=== PATIENT | female | born 1935 | race Caucasian/White ===

== ENCOUNTER 2016-09-22 11:17 | Inpatient (IN) | payer OTHER ==
--- NOTE | ~2016-09-22 | HP ---
History And Physical [id number] [place]. [address] NAME: MIGUEL TRINIDAD : 35 STATUS : ADM IN [facility]#: [id number] AGE: 81 ADM/REG DATE : 09/22/16 MR#: [id number] REPORT SERV DATE: 09/23/16 DICTATED BY: REESE JONES III DATE: 09/23/16 REPORT STATUS : Draft TRANSCRIBED BY: ROSA M DATE: 09/23/16 DATE OF ADMISSION: 09/22/2016 HISTORY OF PRESENT ILLNESS: Mrs. Miguel Trinidad is an 81-year-old, white female from [place], [place], admitted to [facility] for treatment of an acute inferior ST- segment elevation myocardial infarction - acute coronary syndrome approximately 30 minutes after symptom onset. The patient had been in her usual state of health until approximately 30 minutes prior to presentation. At that time, the patient noted the onset of dull substernal chest pain radiating to her neck and head. The patient's chest pain was continuous in character. The patient's chest pain was accompanied by dyspnea, diaphoresis, and nausea. The patient denied any associated vomiting. The patient's chest pain was precipitated by exertion. The patient denied relief with an ice pack. The patient denied trying antacids, heating pad, and sublingual nitroglycerin. The patient was subsequently seen by the emergency medical service. A 12-lead electrocardiogram demonstrated findings consistent with an acute inferior ST-segment elevation myocardial infarction. The patient was treated with aspirin, heparin 3000 units intravenously, and sublingual nitroglycerin. The patient was subsequently transported to [facility] where she was admitted for emergent cardiac catheterization and consideration of revascularization. The patient has a history of dyspnea on exertion, but could not quantitate her functional limitation. The patient denied orthopnea, paroxysmal nocturnal dyspnea, trepopnea, slight tachypnea, pedal edema, sacral edema, hip claudication, and lower extremity claudication. The patient has no history of rheumatic fever or cardiac murmur. The patient's only documented coronary artery disease risk factor was peripheral arterial disease. PAST MEDICAL HISTORY: 1. Arthritis. 2. History of a mesenteric stent. 3. Nausea and abdominal pain of unclear etiology. OPERATIVE PROCEDURES: 1. Status post bilateral tubal ligation. 2. Status post OU cataract extractions with intra-ocular lens implants. 3. Status post lumbar spinal fusion. 4. Status post repeat lumbar spinal fusion. ALLERGIES: SULFA MEDICATIONS. MEDICATIONS: 1. Multivitamin with minerals one p.o. daily. 2. Ondansetron 4 mg sublingual q.12 hours, p.r.n. pain. 3. Pregabalin 50 mg p.o. q.8 hours. 4. Tramadol 50 mg p.o. b.i.d., p.r.n. FAMILY HISTORY: Positive for heart disease, hypertension, stroke, cancer and depression. Negative for seizures, kidney disease, liver disease, anemia, and arthritis. History And Physical [address] [address] NAME: MIGUEL TRINIDAD : 35 STATUS : ADM IN [facility]#: [id number] AGE: 81 ADM/REG DATE : 09/22/16 MR#: [id number] REPORT SERV DATE: 09/23/16 DICTATED BY: REESE JONES III DATE: 09/23/16 REPORT STATUS : Draft TRANSCRIBED BY: ROSA M DATE: 09/23/16 SOCIAL HISTORY: The patient has a history of remote alcohol use. The patient denied any history of tobacco use. PHYSICAL EXAMINATION: GENERAL: Physical examination demonstrated an alert, older white female, in mild respiratory distress. VITAL SIGNS: Demonstrated that she was afebrile to touch, respiratory rate was 19 breaths per minute, and blood pressure was 137/78 mmHg with a heart rate of 60 beats per minute. SKIN: Warm and dry. NECK: Supple and nontender. There was decreased range of motion. There was no appreciable lymphadenopathy or thyromegaly. There was no jugular venous distention appreciable. There were no carotid bruits. BACK: Examination of the back demonstrated no spinal or costovertebral angle tenderness. CHEST: Examination of the chest demonstrated left basilar inspiratory crackles. There were no rhonchi, wheezes, or pleural rubs. There was symmetrical expansion of the chest. There was no use of the accessory muscles respiration. CARDIAC: Cardiac examination demonstrated a nonpalpable apical impulse. There was a regular rhythm and rate without appreciable murmur, rub, gallop, or mid systolic click. There were no thrills or heaves. There was no hepatojugular reflux. ABDOMEN: Examination of the abdomen demonstrated that it was soft and nontender. There was no appreciable hepatosplenomegaly or masses. Bowel sounds were intact. There were no abdominal, flank, or femoral bruits. EXTREMITIES: Examination of the extremities demonstrated that they were symmetrical. There was decreased range of motion. There was no cyanosis, clubbing, or edema. Pulses were 2+ and equal at the radial, femoral, and dorsalis pedis arteries. The right posterior tibial pulse was 2+ and the left posterior tibial pulse was 1+. ASSESSMENT: Mrs. Miguel Trinidad is an 81-year-old, white female with two other risk factors for coronary atherosclerotic disease (i.e. Dyslipidemia, peripheral arterial disease) and no prior cardiac history, who presents with an acute inferior ST-segment elevation myocardial infarction - acute coronary syndrome approximately 30 minutes after symptom onset. The patient is admitted for emergent cardiac catheterization and consideration of revascularization. Options, potential risks and benefits of the procedure were discussed with the patient. The patient accepted these risks and wished to proceed. /ROSA M Reese Jones III, M.D., [facility], [facility] / [id number] CC: Reese Jones III, M.D., [facility], [facility] And Physical [address] [address] NAME: MIGUEL TRINIDAD : 35 STATUS : ADM IN [facility]#: [id number] AGE: 81 ADM/REG DATE : 09/22/16 MR#: [id number] REPORT SERV DATE: 09/23/16 DICTATED BY: REESE JONES III DATE: 09/23/16 REPORT STATUS : Draft TRANSCRIBED BY: MODL DATE: 09/23/16 Ida Cisneros
--- NOTE | ~2016-09-22 | OP ---
Record Of Operation [facility] [address] [place]. [address] NAME: MIGUEL TRINIDAD : 35 STATUS : DIS IN PAT#: [id number] AGE: 81 ADM/REG DATE : 09/22/16 MR#: [id number] REPORT SERV DATE: 09/28/16 DICTATED BY: REESE JONES III DATE: 09/28/16 REPORT STATUS : Draft TRANSCRIBED BY: MODL DATE: 09/28/16 DATE OF PROCEDURE: 09/22/2016 PROCEDURAL HSE MANAGER: Reese Jones M.D., [facility], [facility]. INDICATION: Ms. Miguel Trinidad is an 81-year-old white female with two other risk factors for coronary atherosclerotic disease (i.e., dyslipidemia, peripheral arterial disease) and no prior cardiac history, who presented with an acute inferior ST-segment elevation myocardial infarction-acute coronary syndrome approximately 30 minutes after symptom onset. The patient was referred for emergent cardiac catheterization and consideration of revascularization. Options, potential risks, and benefits of the procedure were discussed with the patient. The patient accepted these risks and wished to proceed. PROCEDURE DESCRIPTION: 1. Left heart catheterization. 2. Left ventriculogram. 3. Left and right coronary angiograms. 4. Percutaneous transluminal coronary angioplasty with implantation of a 3.5 x 12 mm/2.75 x 16 mm/2.25 x 12 mm [employer] Synergy EES in the mid to distal portions of the right coronary artery. 5. Limited right iliofemoral angiogram. CONTRAST: Iopamidol. MEDICATIONS: 1. Midazolam 0.5 mg intravenously. 2. Sublimaze 25 mcg intravenously. 3. Heparin 1000 units intravenously (for a total of 4000 units). 4. Bivalirudin with a loading dose of 0.75 mg/kg intravenously, followed by an intravenous infusion at 1.75 mg/kg per hour. 5. Ticagrelor 180 mg orally. EQUIPMENT: 1. 4-Dominican Cook micropuncture with stiffened cannula (RFA). 2. 0.035 inch PTFE coated, 150 cm, 3 mm [employer] [place] guidewire. 3. 6-Dominican, 11 cm Cordis Fadumo MS sheath. 4. 6-Dominican, 100 cm #4 curve left coronary artery Philip catheter. 5. 6-Dominican, 100 cm Nathanael 3D right coronary artery catheter. 6. 6-Dominican Hockey Stick Cordis [place] Brite-Tip guiding catheter. 7. 0.014 inch Hi-Torque floppy, 190 cm, extra-support Andrade Whisper steerable guidewire. 8. 2.5 x 15 mm [employer] Emerge MR balloon dilatation catheter (14 atmospheres for a duration of 30 seconds). 9. 2.75 x 16 mm [employer] Synergy MR stent deployment system (16 atmospheres for a duration of 60 seconds). 10.3.5 x 12 mm [employer] Synergy MR stent deployment system (18 atmospheres for a duration of 60 seconds). Record Of Operation [facility] [address] [facility] [place]. [address] NAME: MIGUEL TRINIDAD : 35 STATUS : DIS IN PAT#: [id number] AGE: 81 ADM/REG DATE : 09/22/16 MR#: [id number] REPORT SERV DATE: 09/28/16 DICTATED BY: REESE JONES III DATE: 09/28/16 REPORT STATUS : Draft TRANSCRIBED BY: ROSA M DATE: 09/28/16 11.2.25 x 12 mm [employer] Synergy MR stent deployment system (20 atmospheres for a duration of 60 seconds). 12.6-Dominican, 110 cm pigtail-145 catheter. 13.6-Dominican Andrade Perclose ProGlide vascular closure device. COMPLICATIONS: None. RADIATION DOSE: 787 mGy. ESTIMATED BLOOD LOSS: 10 mL. HEMODYNAMIC DATA: Prior to left ventriculography, the central aortic pressure was 140/73 mmHg. The left ventricular pressure was 170/23 mmHg. There was no significant [id number] gradient on pullback from the left ventricle to the aorta. ANGIOGRAPHIC DATA: Single plane 30-degree MENA left ventriculography demonstrated that the left ventricle was mild to moderately enlarged. There was apical hypokinesis, diaphragmatic hypokinesis to akinesis and posterobasal profound hypokinesis to akinesis. Otherwise, regional left ventricular systolic function was normal. Global left ventricular systolic function was moderately reduced. There was no mitral regurgitation. The left main coronary artery was a large caliber, long vessel. There was an eccentric, calcified 40%-50% stenosis involving the distal portion of the left main coronary artery. The left main coronary artery trifurcated into a medium caliber left anterior descending, small to medium caliber ramus intermedius and a small caliber, nondominant left circumflex coronary artery. The left anterior descending coronary artery gave rise to two major septal perforators, small to medium caliber first diagonal branch and a small caliber second diagonal branch, before wrapping around the left ventricular apex. The left anterior descending coronary artery was diffusely irregular. There was an eccentric 25%-40% stenosis involving the mid portion of the left anterior descending coronary artery, just following the origin of the second major septal harness repairer and proximal to the origin of the second major diagonal branch. The left anterior descending coronary artery was free of angiographically significant obstructive epicardial coronary artery disease. The ramus intermedius was a small to medium caliber, irregular vessel. The ramus intermedius gave rise to the first major septal harness repairer. There was a radiolucent 70%-90% stenosis involving the proximal portion of the ramus intermedius coronary artery. The ramus intermedius bifurcated in its midportion into a small caliber proximal branch and a small caliber distal branch. There was a radiolucent, concentric 90% stenosis involving the proximal to midportion of the distal branch of the ramus intermedius coronary artery. The remainder of the ramus intermedius coronary artery was free of angiographically significant obstructive epicardial coronary artery disease. The left circumflex coronary artery was a small caliber, nondominant vessel. There was a concentric 50% stenosis involving the origin of the left circumflex coronary artery from the Record Of Operation [id number] [facility] [place]. [address] NAME: MIGUEL TRINIDAD : 35 STATUS : DIS IN PAT#: [id number] AGE: 81 ADM/REG DATE : 09/22/16 MR#: [id number] REPORT SERV DATE: 09/28/16 DICTATED BY: REESE JONES III DATE: 09/28/16 REPORT STATUS : Draft TRANSCRIBED BY: ROSA M DATE: 09/28/16 left main coronary artery. There was a long, irregular 50% stenosis involving the proximal portion of the left circumflex coronary artery, just proximal to the origin of the obtuse marginal branch. The remainder of the left circumflex coronary artery was free of angiographically significant obstructive epicardial coronary artery disease. The right coronary artery was a medium to large caliber, dominant vessel. The right coronary artery gave rise to a conus branch, sinoatrial branch, small caliber first right ventricular branch, small caliber second right ventricular branch, small caliber acute marginal branch, medium caliber posterior descending coronary artery, small to medium caliber first posterior left ventricular branch, small caliber second posterior left ventricular branch, and a small caliber third posterior left ventricular branch. The right coronary artery was diffusely irregular. There was a radiolucent, eccentric 50%-70% stenosis involving the mid to distal portion of the right coronary artery, at the origin of the acute marginal branch. There was a radiolucent, concentric 90% stenosis involving the distal portion of the right coronary artery, just proximal to the origin of the posterior descending coronary artery. There was a 50% stenosis involving the proximal to midportion of the first right ventricular branch. The remainder of the right coronary artery was free of angiographically significant obstructive epicardial coronary artery disease. Following balloon dilatation and implantation of a 3.5 x 12 mm/2.75 x 16 mm/2.25 x 12 mm [employer] Synergy EES in the mid to distal portions of the right coronary artery, selective injections of the right coronary artery demonstrated a reduction in the stenoses to approximately 0%. There was no intraluminal radiolucency or irregularity. There was JEY grade III perfusion of the distal vessel. Limited right iliofemoral angiography demonstrated tortuosity of the distal external iliac artery. There were diffuse irregularities of the common femoral artery. There were 20%-25% stenosis involving the origins of the superficial femoral and femoral profunda arteries. The sheath insertion site was located in the common femoral artery, just distal to the origin of the inferior epigastric artery. PATIENT DISPOSITION: Cardiac Care Unit. CONCLUSION: 1. Apical hypokinesis, diaphragmatic hypokinesis to akinesis and posterobasal profound hypokinesis to akinesis, with a moderate reduction in global left ventricular systolic function. 2. Elevated left ventricular end-diastolic pressure. 3. Angiographically significant three-vessel coronary artery disease, involving the proximal portion of the ramus intermedius, proximal portion of left circumflex and mid to distal portions of the right coronary arteries. 4. Right dominant coronary anatomy. 5. Successful percutaneous transluminal coronary angioplasty with implantation of a 3.5 x 12 mm/2.75 x 16 mm/2.25 x 12 mm [employer] Synergy EES in the mid to distal portions of the right coronary artery, with reduction in the stenoses to approximately 0% and JEY grade III perfusion of the distal vessel. Record Of Operation [facility] [place]. [address] NAME: MIGUEL TRINIDAD : 35 STATUS : DIS IN PAT#: [id number] AGE: 81 ADM/REG DATE : 09/22/16 MR#: [id number] REPORT SERV DATE: 09/28/16 DICTATED BY: REESE JONES III DATE: 09/28/16 REPORT STATUS : Draft TRANSCRIBED BY: ROSA M DATE: 09/28/16 RECOMMENDATION: Aspirin for life, Ticagrelor for one year, metoprolol, ramipril, high- intensity atorvastatin, cardiac rehabilitation program, and consider staged percutaneous coronary intervention of the ramus intermedius coronary artery. MARQUIS/ROSA M Reese Jones III, M.D., [place] [place] / [id number] CC: Reese Jones III, M.D., [place] [facility] M.
[~2016-09-22 11:17] MED LIST: CALTRA600D PO; CLARIT10 PO; DIL2TAB PO; DSS PO; IBUDONE1 TA1 OR; LIOR10 PO; LORT7 PO; LORTAB 5 PO; LYRICA75 PO; MAG-DELAY PO; MAXZIDE PO; METHOC500B PO; MULTIVIT/MIN PO; NORV5 PO; PROTONIX PO; SUCR PO; ULTRAM50 PO; VITAMIN D31000 UNIT PO; VITC500 PO; VITE PO
[2016-09-22] MEDS ORDERED: ULTRAM50 PO (11:30)
[2016-09-22] MEDS ORDERED: MULTIVIT/MIN PO (11:35)
[2016-09-22] MEDS ORDERED: LYRICA50 PO (11:35)
[2016-09-22] MEDS ORDERED: ZOFRAN ODT4 MG SL (11:36)
[2016-09-22 11:58] LABS: BASOPHILS ABSOLUTE 0.07 10/3/uL (0.0-0.16); EOSINOPHILS 2.5 %; EOSINOPHILS ABSOLUTE 0.18 10/3/uL (0.0-0.53); ER CBC TAT 0 Hrs 08 Mins; HEMATOCRIT 40.9 % (36.0-48.0); HEMOGLOBIN 13.6 g/dL (12.0-16.0); IMMATURE GRANULOCYTES 0.3 %; IMMATURE GRANULOCYTES ABSOLUTE 0.02 10/3/uL (0.0-0.11); LYMPHOCYTES 26.7 %; LYMPHOCYTES ABSOLUTE 1.91 10/3/uL (0.67-4.30); MANUAL DIFF NO %; MEAN CORPUS HGB CONC 33.3 g/dL (32.0-36.0); MEAN CORPUSCULAR HEMOGLOB 29.5 pg (26.0-34.0); MEAN CORPUSCULAR VOLUME 88.7 fL (80-100); MEAN PLATELET VOLUME 9.7 fL (9.2-13.0); MONOCYTES 5.9 %; MONOCYTES ABSOLUTE 0.42 10/3/uL (0.21-1.20); NEUTROPHILS 63.6 %; NEUTROPHILS ABSOLUTE 4.56 10/3/uL (2.02-8.40); PLATELET COUNT 211 10/3/uL (150-400); RBC DISTRIBUTION WIDTH 13.1 % (12.0-16.0); RED CELL COUNT 4.61 10/6/uL (4.0-5.6); WHITE BLOOD CELLS 7.2 10/3/uL (4.5-10.5)
[2016-09-22 12:06] LABS: INTERNATIONAL NORMAL RATI 1.3 UNITS (-); PROTIME (NOT ORD) 15.6 SEC (12.0-14.5)
[2016-09-22 12:12] LABS: CALCIUM, SERUM 8.5 MG/DL (8.5-10.4); CHEST PAIN PROFILE TAT 0 Hrs 22 Mins; CHLORIDE, SERUM 107 MMOL/L (96-112); CO2 (CARBON DIOXIDE) 32 MMOL/L (24-34); CREATININE 0.83 MG/DL (0.55-1.02); GFR AFRICAN AMERICAN 77 ML/MIN (>=60); GFR NON AFRICAN AMERICAN 66 ML/MIN (>=60); GLUCOSE, SERUM 103 MG/DL (60-99); SODIUM, SERUM 143 MMOL/L (135-148); TROPONIN I <0.02 NG/ML (<0.05)
[2016-09-22 12:14] LABS: BUN (BLOOD UREA NITROGEN) 21 MG/DL (6-23)
[2016-09-22 12:18] LABS: PARTIAL THROMBO TIME > 150.0 SEC (22.5-37.2)
[2016-09-22 14:12] LABS: CK-MB 1.2 NG/ML; CPK 85 U/L (0-200)
[2016-09-22 20:19] LABS: CK-MB 133.4 NG/ML
[2016-09-22 20:20] LABS: CKMB INDEX (NOT ORD) 18.5
[2016-09-23 04:27] LABS: HEMATOCRIT 40.6 % (36.0-48.0); HEMOGLOBIN 13.6 g/dL (12.0-16.0); MEAN CORPUS HGB CONC 33.5 g/dL (32.0-36.0); MEAN CORPUSCULAR HEMOGLOB 29.8 pg (26.0-34.0); MEAN CORPUSCULAR VOLUME 88.8 fL (80-100); MEAN PLATELET VOLUME 9.3 fL (9.2-13.0); PLATELET COUNT 209 10/3/uL (150-400); RBC DISTRIBUTION WIDTH 13.3 % (12.0-16.0); RED CELL COUNT 4.57 10/6/uL (4.0-5.6)
[2016-09-23 04:28] LABS: MANUAL DIFF YES %; WHITE BLOOD CELLS 10.8 10/3/uL (4.5-10.5)
[2016-09-23 04:41] LABS: CALCIUM, SERUM 8.6 MG/DL (8.5-10.4); CHLORIDE, SERUM 111 MMOL/L (96-112); CHOLESTEROL 171 MG/DL (< 200); CK-MB 101.6 NG/ML; CPK 622 U/L (0-200); CREATININE 0.81 MG/DL (0.55-1.02); GFR AFRICAN AMERICAN 79 ML/MIN (>=60); GFR NON AFRICAN AMERICAN 68 ML/MIN (>=60); GLUCOSE, SERUM 120 MG/DL (60-99); HDL CHOLESTEROL 85 MG/DL (> 49); LDL CHOLESTEROL 80 MG/DL (< 130); NON-HDL CHOLESTEROL 86 MG/DL (< 160); POTASSIUM, SERUM 4.4 MMOL/L (3.5-5.3); SODIUM, SERUM 145 MMOL/L (135-148); TRIGLYCERIDE 30 MG/DL (< 150)
[2016-09-23 04:44] LABS: BUN (BLOOD UREA NITROGEN) 17 MG/DL (6-23); CKMB INDEX (NOT ORD) 16.3; CO2 (CARBON DIOXIDE) 26 MMOL/L (24-34)
[2016-09-23 04:52] LABS: BAND NEUTROPHILS 6 %; LYMPHOCYTES 1 %; LYMPHOCYTES ABSOLUTE (CALC) 0.11 10/3/uL (0.67-4.30); MONOCYTES 2 %; MONOCYTES ABSOLUTE (CALC) 0.22 10/3/uL (0.21-1.20); NEUTROPHILS ABSOLUTE (CALC) 10.48 10/3/uL (2.02-8.40); PLATELET ESTIMATE ADQ (ADEQUATE); RBC MORPHOLOGY NORM (NORMAL); SEGMENTED NEUTROPHIL (0) 91 %; TOTAL NUCLEATED CELLS 100
[2016-09-23 12:09] LABS: CK-MB 70.8 NG/ML
[2016-09-23 12:10] LABS: CKMB INDEX (NOT ORD) 14.6
[2016-09-24 03:57] LABS: BASOPHILS 0.8 %; BASOPHILS ABSOLUTE 0.06 10/3/uL (0.0-0.16); EOSINOPHILS 3.5 %; EOSINOPHILS ABSOLUTE 0.25 10/3/uL (0.0-0.53); HEMOGLOBIN 13.8 g/dL (12.0-16.0); IMMATURE GRANULOCYTES 0.3 %; IMMATURE GRANULOCYTES ABSOLUTE 0.02 10/3/uL (0.0-0.11); LYMPHOCYTES 21.6 %; LYMPHOCYTES ABSOLUTE 1.56 10/3/uL (0.67-4.30); MEAN CORPUS HGB CONC 32.9 g/dL (32.0-36.0); MEAN CORPUSCULAR HEMOGLOB 29.4 pg (26.0-34.0); MEAN CORPUSCULAR VOLUME 89.4 fL (80-100); MEAN PLATELET VOLUME 9.5 fL (9.2-13.0); MONOCYTES 5.8 %; MONOCYTES ABSOLUTE 0.42 10/3/uL (0.21-1.20); PLATELET COUNT 203 10/3/uL (150-400); RBC DISTRIBUTION WIDTH 13.7 % (12.0-16.0); WHITE BLOOD CELLS 7.2 10/3/uL (4.5-10.5)
[2016-09-24 03:58] LABS: MANUAL DIFF NO %
[2016-09-24 04:11] LABS: BUN (BLOOD UREA NITROGEN) 16 MG/DL (6-23); CALCIUM, SERUM 8.3 MG/DL (8.5-10.4); CHLORIDE, SERUM 110 MMOL/L (96-112); CO2 (CARBON DIOXIDE) 28 MMOL/L (24-34); CREATININE 0.79 MG/DL (0.55-1.02); GFR AFRICAN AMERICAN 81 ML/MIN (>=60); GFR NON AFRICAN AMERICAN 70 ML/MIN (>=60); POTASSIUM, SERUM 4.1 MMOL/L (3.5-5.3); SODIUM, SERUM 144 MMOL/L (135-148)
[2016-09-24 04:14] LABS: GLUCOSE, SERUM 91 MG/DL (60-99)
[2016-09-24] MEDS ORDERED: ASAB PO (12:56)
[2016-09-24] MEDS ORDERED: LIPITOR40 PO (12:57)
[2016-09-24] MEDS ORDERED: ALTACE10 MG PO (12:58)
[2016-09-24] MEDS ORDERED: BRILINTA90 MG PO (12:59)
[2016-09-24] MEDS ORDERED: NITROQUICK0.4 MG SL (13:00)
[2016-09-24] MEDS ORDERED: TOPXL100 PO (13:01)
== END 2016-09-24 14:45 | disposition home or self-care (01) | DRG 247 ==
LOC: ER 11:17 → CCU 13:16
PROVIDERS: Emergency Medicine; Internal Medicine Cardiovascular Disease
PROC: 027034Z Dilation of Coronary Artery, One Artery with Drug-eluting Intraluminal Device, Percutaneous Approach (ICD-10-PCS; principal; 2016-09-22)
PROC: 4A023N7 Measurement of Cardiac Sampling and Pressure, Left Heart, Percutaneous Approach (ICD-10-PCS; 2016-09-22)
PROC: B2111ZZ Fluoroscopy of Multiple Coronary Arteries using Low Osmolar Contrast (ICD-10-PCS; 2016-09-22)
PROC: B41F1ZZ Fluoroscopy of Right Lower Extremity Arteries using Low Osmolar Contrast (ICD-10-PCS; 2016-09-22)
PROC: B2161ZZ Fluoroscopy of Right and Left Heart using Low Osmolar Contrast (ICD-10-PCS; 2016-09-22)
DX: I21.19 ST elevation (STEMI) myocardial infarction involving other coronary artery of inferior wall (principal); I73.9 Peripheral vascular disease, unspecified; E78.5 Hyperlipidemia, unspecified; I25.10 Atherosclerotic heart disease of native coronary artery without angina pectoris; M19.90 Unspecified osteoarthritis, unspecified site; Z88.2 Allergy status to sulfonamides; Z82.49 Family history of ischemic heart disease and other diseases of the circulatory system; Z82.3 Family history of stroke; Z85.9 Personal history of malignant neoplasm, unspecified; Z84.89 Family history of other specified conditions
CPT/HCPCS: 71010; 80048; 80061; 82550; 82553; 82565; 83735; 84484; 85025; 85610; 85730; 87641; 93005; 93458; 96374; 96375; 99285; A9270-GY; C1725; C1760; C1769; C1874; C1887; C1894; C9606; J0583; J1200; J2250; J2930; J3010; Q9967

== ENCOUNTER 2016-10-30 12:02 | Emergency (ER) | payer OTHER ==
[2016-10-30 10:16] LABS: BASOPHILS 0.8 %; BASOPHILS ABSOLUTE 0.06 10/3/uL (0.0-0.16); EOSINOPHILS 2.5 %; EOSINOPHILS ABSOLUTE 0.19 10/3/uL (0.0-0.53); HEMATOCRIT 44.4 % (36.0-48.0); HEMOGLOBIN 14.5 g/dL (12.0-16.0); IMMATURE GRANULOCYTES 0.3 %; IMMATURE GRANULOCYTES ABSOLUTE 0.02 10/3/uL (0.0-0.11); LYMPHOCYTES 13.3 %; LYMPHOCYTES ABSOLUTE 1.01 10/3/uL (0.67-4.30); MANUAL DIFF NO %; MEAN CORPUS HGB CONC 32.7 g/dL (32.0-36.0); MEAN CORPUSCULAR HEMOGLOB 29.5 pg (26.0-34.0); MEAN CORPUSCULAR VOLUME 90.2 fL (80-100); MEAN PLATELET VOLUME 9.4 fL (9.2-13.0); MONOCYTES 6.1 %; MONOCYTES ABSOLUTE 0.46 10/3/uL (0.21-1.20); NEUTROPHILS ABSOLUTE 5.85 10/3/uL (2.02-8.40); PLATELET COUNT 232 10/3/uL (150-400); RBC DISTRIBUTION WIDTH 13.5 % (12.0-16.0); RED CELL COUNT 4.92 10/6/uL (4.0-5.6); WHITE BLOOD CELLS 7.6 10/3/uL (4.5-10.5)
[2016-10-30 10:31] LABS: A/G RATIO 0.8 (0.7-1.9); ALBUMIN 3.3 G/DL (3.5-5.0); ALKALINE PHOSPHATASE 70 U/L (45-117); BUN (BLOOD UREA NITROGEN) 14 MG/DL (6-23); CALCIUM, SERUM 9.1 MG/DL (8.5-10.4); CHLORIDE, SERUM 106 MMOL/L (96-112); CO2 (CARBON DIOXIDE) 31 MMOL/L (24-34); CREATININE 0.85 MG/DL (0.55-1.02); GFR AFRICAN AMERICAN 74 ML/MIN (>=60); GFR NON AFRICAN AMERICAN 64 ML/MIN (>=60); GLUCOSE, SERUM 79 MG/DL (60-99); POTASSIUM, SERUM 3.7 MMOL/L (3.5-5.3); SGOT(AST) 28 U/L (5-40); SGPT(ALT) 21 U/L (5-65); SODIUM, SERUM 141 MMOL/L (135-148); TOTAL BILIRUBIN 1.4 MG/DL (0-1.2); TOTAL PROTEIN 7.2 G/DL (6.0-8.5)
[2016-10-30 10:34] LABS: GLOBULIN 3.9 G/DL (2.5-4.1)
[~2016-10-30 12:02] MED LIST changes: +ALTACE10 MG PO; +ASAB PO; +BRILINTA90 MG PO; +LIPITOR40 PO; +LYRICA50 PO; +NITROQUICK0.4 MG SL; +TOPXL100 PO; +ZOFRAN ODT4 MG SL
[2016-10-30 12:54] LABS: INTERNATIONAL NORMAL RATI 1.1 UNITS (-); PARTIAL THROMBO TIME 35.6 SEC (22.5-37.2); PROTIME (NOT ORD) 14.5 SEC (12.0-14.5)
[2016-10-30 12:56] LABS: D-DIMER QUANTITATIVE 0.38 ug/mLFEU (< 0.50)
[2016-10-30 13:00] LABS: CHEST PAIN PROFILE TAT 2 Hrs 50 Mins; TROPONIN I <0.02 NG/ML (<0.05)
== END 2016-10-30 14:55 | disposition home or self-care (01) ==
LOC: ER 12:02
PROVIDERS: Emergency Medicine
DX: R07.9 Chest pain, unspecified (principal); R06.02 Shortness of breath; I25.2 Old myocardial infarction; Z87.01 Personal history of pneumonia (recurrent); Z91.041 Radiographic dye allergy status; Z88.2 Allergy status to sulfonamides; Z91.013 Allergy to seafood; Z79.82 Long term (current) use of aspirin; Z79.899 Other long term (current) drug therapy
CPT/HCPCS: 71020; 80053; 83880; 84484; 85025; 85379; 85610; 85730; 93005; 99285; A9270-GY